=== PATIENT | female | born 1940 | race Caucasian/White ===

== ENCOUNTER 2016-08-03 23:00 | Inpatient (IN) | payer MEDICARE, BC, OTHER ==
--- NOTE | ~2016-08-03 | HP ---
History And Physical [place] [id number] [facility] [place]. [address] NAME: MARIE MUSA : 36 STATUS : REG ER PAT#: [id number] AGE: 75 ADM/REG DATE : 08/03/16 MR#: [id number] REPORT SERV DATE: 08/04/16 DICTATED BY: JESSEE BALL DATE: 08/04/16 REPORT STATUS : Draft TRANSCRIBED BY: MODL DATE: 08/04/16 DATE OF ADMISSION: 08/04/2016 CHIEF COMPLAINT: Intractable back pain. HISTORY OF PRESENT ILLNESS: This is a 75-year-old lady with history of hypertension, diabetes, prior stroke presenting with intractable right-sided back pain. The patient reports that she first noticed a right-sided back pain about 10 days ago. The pain is worse with movement and it is over her right costovertebral angle posteriorly. The pain does not radiate. There is no shooting pain. The patient did not have any fevers or chills. The patient did not have any nausea or vomiting. The patient does not remember any injuries to the area. The patient initially thought that she had a kidney infection and actually went to an Urgent Care up in [place] where she was evaluated and the verdict was that they were not really sure why she was having so much pain in her right flank. They felt that the patient may have passed a kidney stone. The patient was discharged home with some oral pain medications. The patient is already established with pain clinic and she takes hydrocodone for osteoarthritis. The patient was trying to control the pain at home; however, the pain continued to get worse. The patient thus decided to come down to our ER for further evaluation and care. In the ER, patient was found to be afebrile and hemodynamically stable. The patient was actually found to be slightly hypertensive likely due to poorly controlled pain. Initial lab evaluation revealed a slight hyponatremia with sodium of 126 but otherwise benign electrolytes and LFTs. CBC was also benign. Urinalysis was positive for nitrite and some small ketones but otherwise negative for UTI. CT of the abdomen and pelvis was largely benign other than cholelithiasis with questionable cholecystitis which would not explain the source of her pain. Internal Medicine consultation was requested for admission of the patient for further evaluation and care. REVIEW OF SYSTEMS: The patient denies any fevers or chills. Also, 14-point review of systems reviewed and negative other than mentioned above. MEDICATIONS: The list is still pending at this time. PAST MEDICAL HISTORY: 1. Hypertension. 2. Diabetes type 2. 3. Hyperlipidemia. 4. History of CVA in 2009 without any residual deficits. 5. Osteoarthritis. 6. Peripheral neuropathy. 7. Hypothyroidism. PAST SURGICAL HISTORY: 1. Hysterectomy. History And Physical [address] [address] NAME: MARIE MUSA : 36 STATUS : REG ER PAT#: [id number] AGE: 75 ADM/REG DATE : 08/03/16 MR#: [id number] REPORT SERV DATE: 08/04/16 DICTATED BY: JESSEE BALL DATE: 08/04/16 REPORT STATUS : Draft TRANSCRIBED BY: SHAY DATE: 08/04/16 2. Right shoulder surgery x3. 3. Trigger finger surgery. FAMILY HISTORY: 1. CVA. 2. Aortic aneurysm in her father who at age 38. 3. Diabetes. 4. Breast cancer. SOCIAL HISTORY: The patient does not smoke, drink alcohol, or use any illicit drugs. The patient is a retired food aide. The patient lives at home alone. The patient is accompanied by one of her daughters here in the ER. PHYSICAL EXAMINATION: VITAL SIGNS: Temperature 98.3, blood pressure 192/86, pulse 98, respiratory rate is 14, saturating 98% on room air. GENERAL: The patient is alert and oriented x3. No focal neurologic deficits. The patient is awake, does not appear to be in acute distress, and she is cooperative. NECK: No JVD. No lymphadenopathy. Normal thyroid. CHEST: No midline sternotomy scar and no tenderness to palpation. LUNGS: Clear to auscultation bilaterally with normal respiratory effort on room air. CARDIOVASCULAR: Regular rate and rhythm with no murmurs, rubs, or gallops, and PMI is nondisplaced. ABDOMEN: Soft, nontender with active bowel sounds and no organomegaly. EXTREMITIES: No edema. Normal distal pulses. No calf tenderness. SKIN: Clean, dry, warm, and intact. LABORATORY DATA: Sodium is 126, potassium 3.7, chloride 87, BUN 11, creatinine 0.73, glucose 158, calcium 9.2. LFTs are within normal limits. White blood cell count is 6.1, hemoglobin 11.9, platelets 301. Troponin is less than 0.02. Urinalysis was positive for nitrite and ketones but otherwise negative. CT of the abdomen and pelvis showed no obstruction in the GI system. It showed multilevel degenerative changes in the lumbar spine. It also showed cholelithiasis with questionable cholecystitis. EKG is personally interpreted. It shows normal sinus rhythm with no acute obvious ischemic changes. ASSESSMENT: This is a 75-year-old lady with history of hypertension, diabetes, hyperlipidemia, history of CVA, presenting with an intractable back pain. 1. Intractable back pain, which sounds a lot like a musculoskeletal pain. However, it has been ongoing and was uncontrolled with p.o. pain medications at home. 2. Hypovolemic hyponatremia with sodium of 126. 3. Uncontrolled hypertension. 4. Cholelithiasis, questionable cholecystitis, an incidental finding as I do not believe this is related to her presenting back pain. 5. Diabetes type 2. 6. Osteoarthritis. 7. History of cerebrovascular accident. 8. Hypothyroidism. History And Physical [address] [address] NAME: MARIE MUSA : 38 STATUS : REG ER PAT#: [id number] AGE: 75 ADM/REG DATE : 08/03/16 MR#: [id number] REPORT SERV DATE: 08/04/16 DICTATED BY: JESSEE BALL DATE: 08/04/16 REPORT STATUS : Draft TRANSCRIBED BY: SHAY DATE: 08/04/16 9. Peripheral neuropathy. PLAN: My plan is to admit the patient for observation overnight. The patient will be mostly given supportive care with pain control and muscle relaxants. The patient will be evaluated by physical therapy. For the hypokalemic hyponatremia, the patient will be given IV fluid resuscitation and I will follow her electrolytes. For the uncontrolled hypertension, I will give her antihypertensives as needed to control her blood pressure better. For possible cholelithiasis, I will go ahead and get right upper quadrant ultrasound. For the rest of her stable chronic medical conditions, I will continue home medications when the home medication list becomes available. Standard DVT prophylaxis. The patient is full code at this time. TYLER/SHAY Jessee Ball MD / [id number]
--- NOTE | ~2016-08-03 | DS ---
Discharge Summary [facility] [address] [place]. [address] NAME: MARIE MUSA : 36 STATUS : ADM IN [facility]#: [id number] AGE: 75 ADM/REG DATE : 08/05/16 MR#: [id number] REPORT SERV DATE: 08/06/16 DICTATED BY: ETIENNE HOROWITZ DATE: 08/05/16 REPORT STATUS : Draft TRANSCRIBED BY: MODL DATE: 08/05/16 ADMISSION DATE: 08/04/2016 DISCHARGE DATE: Additionally, this is a late entry dictation for encounter which took place at roughly 12:30 on . CHIEF COMPLAINT: Abdominal pain. REASON FOR CONSULT: Gallstones. HISTORY OF PRESENT ILLNESS: This is a 75-year-old female with a history of high blood pressure and prior back pain as well as stroke who presented to the emergency department with severe right-sided back pain. The patient has been experiencing this pain on and off, but first noticed this pain roughly 10 days ago. It is exacerbated by movement and located at the costovertebral angle posteriorly. There is no radiation, but she does rate the pain 10/10 after her pain medication wears off. She denies any history of postprandial pain, nausea, vomiting, scleral icterus, or jaundice. She denies any acholic stools or dark urine. There is no pruritus. She cannot remember injuring the area though she has had trouble with throwing her back out in the past. She thought she was having something within her urinary tract she passes off as a kidney stone. The pain has only gotten worse over the last 10 days and she presented to the emergency department for evaluation. In the emergency department, her vital signs were stable. LFTs were normal and CBC was 6.8. CT of the abdomen and pelvis was indeterminate from a gallbladder perspective with poor visualization of the gallbladder, but we were able to see cholelithiasis. Followup ultrasound showed gallstones with no gallbladder wall thickening or pericholecystic fluid. As there was concern for possible cholecystitis on the CT scan of the abdomen and pelvis, General Surgery was consulted. REVIEW OF SYSTEMS: A 14-point review of systems reviewed and is otherwise negative except as per history of present illness. PAST MEDICAL HISTORY: 1. Hypertension. 2. Diabetes. 3. Dyslipidemia. 4. History of stroke seven years ago. 5. Arthritis. 6. Peripheral neuropathy. 7. Hypothyroidism. PAST SURGICAL HISTORY: 1. Hysterectomy. 2. Shoulder surgery on the right x3. Discharge Summary [address] [place]. [address] NAME: MARIE MUSA : 36 STATUS : ADM IN [facility]#: [id number] AGE: 75 ADM/REG DATE : 08/05/16 MR#: [id number] REPORT SERV DATE: 08/06/16 DICTATED BY: ETIENNE HOROWITZ DATE: 08/05/16 REPORT STATUS : Draft TRANSCRIBED BY: SHAY DATE: 08/05/16 MEDICATIONS: Please review the patient's medications in her chart. They have been reviewed. FAMILY HISTORY: History of stroke and aortic aneurysm in the father. Diabetes and breast cancer. SOCIAL HISTORY: The patient lives with her daughter. Denies the use of any drugs or alcohol. She does not smoke. She was formerly employed as a cook and a fast food server. She lives at home alone. PHYSICAL EXAMINATION: VITAL SIGNS: On evaluation, temperature was 97.5, heart rate 81, respirations 16, oxygen saturations 99% on room air, blood pressure 137/60. Laboratory values significant as per history of present illness. GENERAL APPEARANCE: She is alert and oriented, is in some mild discomfort, but not overt distress. She is accompanied by her daughter. HEAD, EARS, EYES, NOSE, THROAT: There is no scleral icterus or jaundice. No facial lesions. Conjunctivae are pink and moist. Oropharynx is pink and moist. Hearing is grossly normal. There is no otorrhea. No rhinorrhea. NECK: Reveals no cervical lymphadenopathy. No goiter. No supraclavicular lymphadenopathy. CHEST: Lungs are clear to auscultation bilaterally. No wheezes or crackles. HEART: Rate is regular. Pulses palpable in the extremities. Capillary refill time less than 2 seconds. ABDOMEN: Soft and nondistended. She is obese. There is minimal tenderness to palpation at the epigastrium; however, palpation of the back, the costovertebral angle, and actually well inferior toward the pelvis, she does have exquisite point tenderness on palpation. This is worsened with movement. There were no masses in the abdomen. No hernias palpated. EXTREMITIES: No gross deformities. No cyanosis. There is mild pitting edema in the bilateral lower extremities. PSYCHIATRIC: Appropriate mood and affect. Normal speech patterns. NEUROLOGIC: Revealed no focal deficits. LABORATORY STUDIES: As per HPI. RADIOGRAPHIC STUDIES: As per HPI. ASSESSMENT AND PLAN: This is a 75-year-old female with gallstones. At this time, we have a CT scan and a right upper quadrant ultrasound, which are negative for any infectious process of the gallbladder. Her white blood cell count is normal, and her LFTs and transaminases are within normal limits. She has no evidence of pancreatitis. Given the nature of point tenderness and exacerbation with movement as well as the location of the pain, it is highly unlikely this is related to her gallstones and is much more musculoskeletal in nature. I agree with admission to the hospital for further workup of the pain and work with physical therapy as well as pain control. Should the patient's condition worsen or become more suggestive of gallbladder pathology, please do not hesitate to contact General Surgery. She would like to have her cholelithiasis worked up and treated on an outpatient basis. We will be happy to have her referred to one of the general surgeons for more elective procedure. There is no surgical indication at this time. This assessment and plan was discussed with Discharge Summary [address] [place]. [address] NAME: MARIE MUSA : 36 STATUS : ADM IN [facility]#: [id number] AGE: 75 ADM/REG DATE : 08/05/16 MR#: [id number] REPORT SERV DATE: 08/06/16 DICTATED BY: ETIENNE HOROWITZ DATE: 08/05/16 REPORT STATUS : Draft TRANSCRIBED BY: MODL DATE: 08/05/16 Dr. Horowitz who agrees. DICTATED BY: Jeremías Manley MD [facility]/SHAY Ines Horowitz M.D. / [id number] CC: Jessee Ball MD
--- NOTE | ~2016-08-03 | DS ---
Discharge Summary [facility] [address] [place]. [address] NAME: AMRIE MUSA : 36 STATUS : DIS IN PAT#: [id number] AGE: 75 ADM/REG DATE : 08/05/16 MR#: [id number] REPORT SERV DATE: 08/10/16 DICTATED BY: JESSEE MCMANUS DATE: 08/06/16 REPORT STATUS : Draft TRANSCRIBED BY: MODL DATE: 08/06/16 ADMISSION DATE: 08/05/2016 DISCHARGE DATE: 08/06/2016 DISCHARGE DIAGNOSES: 1. Intractable back pain, likely musculoskeletal in origin. 2. Right upper quadrant pain with normal LFTs, CBC, CT of the abdomen and pelvis, and ultrasound other than cholelithiasis. There was no cholecystitis identified. 3. Constipation. 4. Hypovolemic hyponatremia, resolved with IV fluids. 5. Hypertension. 6. Diabetes type 2. 7. Osteoarthritis. 8. Hypothyroidism. 9. Peripheral neuropathy. 10.History of cerebrovascular accident. CONSULTS: General Surgery. PROCEDURES: None. HOSPITAL COURSE: This is a 75-year-old lady who presented to the hospital with a right flank and back pain. For details, please refer to my own H and P. In summary, the patient was admitted and was conservatively treated with pain control as well as muscle relaxants. Initial CT of the abdomen and pelvis revealed cholelithiasis with possible cholecystitis and thus, right upper quadrant ultrasound was performed. The ultrasound was actually negative, but the patient actually developed significant right upper quadrant tenderness during the ultrasound procedure. The patient and the family were extremely concerned about possibly having a cholecystitis and thus HIDA scan was ordered and General Surgery was consulted. The patient was seen and evaluated by General Surgery who did not feel that the patient was suffering from cholecystitis and they did not recommend any surgery. Unfortunately, the patient was still complaining of a right flank and back pain, although it was responsive to Flexeril and hydrocodone. The patient was given repeated reassurance that it is likely a musculoskeletal pain that would improve with time and physical therapy. The patient actually refused physical therapy, but despite her complaints of severe intractable pain, the patient was still able to ambulate with a walker. It was felt that the patient was safe for discharge home with close outpatient followup. Of note, during the hospital stay and prior to coming to the hospital, the patient has had constipation and she was not able to get relieved here in the hospital. The patient was given multiple doses of laxatives and hopefully, she will have a bowel movement before she is discharged home. DISCHARGE MEDICATIONS: Flexeril 5 mg to 10 mg p.o. q.8 hours p.r.n. otherwise no medication changes. Of note, the patient is already on hydrocodone 5/325 q.4 p.r.n. for arthritic pain at baseline. DISPOSITION: Home. Discharge Summary [address] [place]. [address] NAME: MARIE MUSA : 36 STATUS : DIS IN PAT#: [id number] AGE: 75 ADM/REG DATE : 08/05/16 MR#: [id number] REPORT SERV DATE: 08/10/16 DICTATED BY: JESSEE MCMANUS DATE: 08/06/16 REPORT STATUS : Draft TRANSCRIBED BY: SHAY DATE: 08/06/16 FOLLOWUP: Please follow up with PCP in the next one to two weeks. A total of 25 minutes spent in coordinating this patient's discharge today. TYLER/SHAY Jessee Mcmanus MD / [id number] CC: Jessee Mcmanus MD
[~2016-08-03 23:00] MED LIST: ACET500CAP PO; ARMOUR THYRO120 MG PO; ASA5GR PO; ASAB PO; CLARIT10 PO; COREG6 PO; COZ25 PO; DIL2TAB PO; GLUCOPHAGE1000 MG PO; GLUCPH PO; HUMALOG SC; HYDROCHLOROT12.5 MG PO; IRON325 MG PO; KDUR20 PO; L40 PO; LEVOTHYROXIN125 MCG PO; MELATONIN5 M1 PO; MICRONASE2.5 MG PO; MSCONTIN PO; MULTIPLE VIT PO; NORCO1 TAB PO; PR25 PO; TYLENOL ARTH650 MG PO; VOLT50 PO; VOLT75 PO
[2016-08-04 00:41] LABS: ASCORBIC ACID (UR NOT ORDER) NEG (NEG); BILIRUBIN, URINE NEGATIVE (NEG); ER URINALYSIS TAT 0 Hrs 00 Mins; KETONE, URINE 20 MG/DL (NEG); LEUKOCYTE ESTERASE(NOT OR NEG (NEG); NITRITE (URINE) POS (NEG); WBC (NOT ORDERED) (RFLEX) 1 (0-5)
[2016-08-04 02:21] LABS: BASOPHILS 0.2 %; BASOPHILS ABSOLUTE 0.01 10/3/uL (0.0-0.16); EOSINOPHILS 2.3 %; EOSINOPHILS ABSOLUTE 0.14 10/3/uL (0.0-0.53); HEMATOCRIT 33.6 % (36.0-48.0); HEMOGLOBIN 11.9 g/dL (12.0-16.0); IMMATURE GRANULOCYTES 0.2 %; IMMATURE GRANULOCYTES ABSOLUTE 0.01 10/3/uL (0.0-0.11); LYMPHOCYTES 36.4 %; LYMPHOCYTES ABSOLUTE 2.22 10/3/uL (0.67-4.30); MEAN CORPUSCULAR HEMOGLOB 29.4 pg (26.0-34.0); MEAN PLATELET VOLUME 8.6 fL (9.2-13.0); MONOCYTES 9.2 %; MONOCYTES ABSOLUTE 0.56 10/3/uL (0.21-1.20); NEUTROPHILS 51.7 %; NEUTROPHILS ABSOLUTE 3.16 10/3/uL (2.02-8.40); PLATELET COUNT 301 10/3/uL (150-400); RBC DISTRIBUTION WIDTH 12.7 % (12.0-16.0); RED CELL COUNT 4.05 10/6/uL (4.0-5.6)
[2016-08-04 02:22] LABS: MANUAL DIFF NO %; MEAN CORPUS HGB CONC 35.4 g/dL (32.0-36.0); WHITE BLOOD CELLS 6.1 10/3/uL (4.5-10.5)
[2016-08-04 02:38] LABS: ALKALINE PHOSPHATASE 83 U/L (45-117); BUN (BLOOD UREA NITROGEN) 11 MG/DL (6-23); CALCIUM, SERUM 9.2 MG/DL (8.5-10.4); CHLORIDE, SERUM 87 MMOL/L (96-112); CO2 (CARBON DIOXIDE) 25 MMOL/L (24-34); CREATININE 0.73 MG/DL (0.55-1.02); DIRECT BILIRUBIN 0.2 MG/DL (0.0-0.4); GFR AFRICAN AMERICAN 92 ML/MIN (>=60); GFR NON AFRICAN AMERICAN 79 ML/MIN (>=60); GLUCOSE, SERUM 158 MG/DL (60-99); INDIRECT BILIRUBIN(NOT ORDER) 0.8 MG/DL (0.1-0.9); POTASSIUM, SERUM 3.7 MMOL/L (3.5-5.3); SGOT(AST) 17 U/L (5-40); SGPT(ALT) 19 U/L (5-65); SODIUM, SERUM 126 MMOL/L (135-148); TOTAL PROTEIN 8.2 G/DL (6.0-8.5); TROPONIN I <0.02 NG/ML (<0.05)
[2016-08-04] MEDS ORDERED: ARMOUR THYRO120 MG PO (08:19)
[2016-08-04] MEDS ORDERED: GLUCPH PO (08:19)
[2016-08-04] MEDS ORDERED: COREG6 PO (08:20)
[2016-08-04] MEDS ORDERED: ARMOUR THYRO60 MG PO (08:20)
[2016-08-04] MEDS ORDERED: L40 PO (08:20)
[2016-08-04] MEDS ORDERED: VOLT50 PO (08:21)
[2016-08-04] MEDS ORDERED: EYE VITAMIN PO (08:21)
[2016-08-04] MEDS ORDERED: THERGRANM PO (08:21)
[2016-08-04] MEDS ORDERED: NORCO1 TA1 PO (08:22)
[2016-08-04] MEDS ORDERED: AMOXIL500C PO (08:22)
[2016-08-04] MEDS ORDERED: KLOR-CON M2020 MEQ PO (08:22)
[2016-08-04] MEDS ORDERED: HALF81 PO (08:23)
[2016-08-04] MEDS ORDERED: TEARS PLUS OPH (08:23)
[2016-08-04] MEDS ORDERED: CAT1 PO (08:23)
[2016-08-05 06:37] LABS: BASOPHILS 0.1 %; BASOPHILS ABSOLUTE 0.01 10/3/uL (0.0-0.16); EOSINOPHILS 2.4 %; EOSINOPHILS ABSOLUTE 0.16 10/3/uL (0.0-0.53); HEMOGLOBIN 10.5 g/dL (12.0-16.0); IMMATURE GRANULOCYTES 0.4 %; IMMATURE GRANULOCYTES ABSOLUTE 0.03 10/3/uL (0.0-0.11); LYMPHOCYTES 33.7 %; LYMPHOCYTES ABSOLUTE 2.28 10/3/uL (0.67-4.30); MEAN CORPUS HGB CONC 34.9 g/dL (32.0-36.0); MEAN CORPUSCULAR HEMOGLOB 29.1 pg (26.0-34.0); MEAN CORPUSCULAR VOLUME 83.4 fL (80-100); MEAN PLATELET VOLUME 8.5 fL (9.2-13.0); MONOCYTES 11.1 %; MONOCYTES ABSOLUTE 0.75 10/3/uL (0.21-1.20); NEUTROPHILS 52.3 %; NEUTROPHILS ABSOLUTE 3.53 10/3/uL (2.02-8.40); PLATELET COUNT 273 10/3/uL (150-400); RBC DISTRIBUTION WIDTH 13.2 % (12.0-16.0); RED CELL COUNT 3.61 10/6/uL (4.0-5.6); WHITE BLOOD CELLS 6.8 10/3/uL (4.5-10.5)
[2016-08-05 06:38] LABS: HEMATOCRIT 30.1 % (36.0-48.0); MANUAL DIFF NO %
[2016-08-05 06:47] LABS: BUN (BLOOD UREA NITROGEN) 10 MG/DL (6-23); CALCIUM, SERUM 9.1 MG/DL (8.5-10.4); CHLORIDE, SERUM 98 MMOL/L (96-112); CO2 (CARBON DIOXIDE) 25 MMOL/L (24-34); GFR AFRICAN AMERICAN 97 ML/MIN (>=60); GFR NON AFRICAN AMERICAN 84 ML/MIN (>=60); GLUCOSE, SERUM 140 MG/DL (60-99); POTASSIUM, SERUM 3.5 MMOL/L (3.5-5.3); SODIUM, SERUM 132 MMOL/L (135-148)
[2016-08-06] MEDS ORDERED: FLEXERIL5 MG PO (18:39)
== END 2016-08-06 20:30 | disposition home or self-care (01) | DRG 552 ==
LOC: ER 23:00 → 5SO 08-04 10:29
PROVIDERS: Emergency Medicine; Internal Medicine
DX: M54.9 Dorsalgia, unspecified (principal); E87.1 Hypo-osmolality and hyponatremia; E11.9 Type 2 diabetes mellitus without complications; G62.9 Polyneuropathy, unspecified; I10 Essential (primary) hypertension; K80.20 Calculus of gallbladder without cholecystitis without obstruction; M19.90 Unspecified osteoarthritis, unspecified site; E03.9 Hypothyroidism, unspecified; Z86.73 Personal history of transient ischemic attack (TIA), and cerebral infarction without residual deficits; Z90.710 Acquired absence of both cervix and uterus; Z98.890 Other specified postprocedural states; Z79.899 Other long term (current) drug therapy; Z82.3 Family history of stroke; Z83.3 Family history of diabetes mellitus; Z80.3 Family history of malignant neoplasm of breast
CPT/HCPCS: 74176; 76705; 80048; 80076; 81001; 82962; 83690; 84484; 85025; 93005; 96374; 96375; 97161-GP; 99285; A9270-GY; A9537; G8978-CL-GP; G8979-CJ-GP; J1170; J2405